=== PATIENT | male | born 1945 | race Caucasian/White ===

== ENCOUNTER 2018-06-20 09:20 | Outpatient (REF) | payer MEDICARE, BC ==
[2018-06-20 10:33] VITALS: BP 99/51
== END 2018-06-20 10:38 | disposition home or self-care (01) ==
LOC: INF 09:20
PROVIDERS: ATTEND Internal Medicine
DX: N18.3 Chronic kidney disease, stage 3 (moderate) (principal); D50.9 Iron deficiency anemia, unspecified; D63.1 Anemia in chronic kidney disease
CPT/HCPCS: Q0138

== ENCOUNTER → 2018-07-17 | Outpatient (REF) | payer MEDICARE, BC | END | disposition home or self-care (01) | LOC: ULTRASND 10:13 | PROVIDERS: ATTEND Nurse Practitioner | PROC: 0W9G3ZZ Drainage of Peritoneal Cavity, Percutaneous Approach (ICD-10-PCS; principal; 2018-07-17) | DX: R18.8 Other ascites (principal) ==